=== PATIENT | male | born 1995 | race Caucasian/White ===

== ENCOUNTER 2020-01-10 07:45 | Emergency (ER) | payer SELFPAY ==
[~2020-01-10] VITALS: Ht 177.8 cm; Wt 81.6 kg
[2020-01-10 07:46] VITALS: BP 158/107
--- NOTE | 2020-01-10 07:51 | NUR ---
OFFICER GARRICK WITH [facility] BROUGHT PT IN FOR PRE-BOOK PT DENIES ANY INJURY OR MEDICAL COMPLAINTS AT THIS TIME---
[2020-01-10 08:05] VITALS: BP 140/90
--- NOTE | 2020-01-10 08:06 | NUR ---
Patient discharged with v/s stable. Written and verbal after care instructions given and explained. Patient verbalized understanding. Police with in custody. All questions addressed prior to discharge. Advised to follow up with PMD.
== END 2020-01-10 08:06 ==
LOC: MED 07:45
DX: R03.0 Elevated blood-pressure reading, without diagnosis of hypertension (principal); F90.9 Attention-deficit hyperactivity disorder, unspecified type; Z02.89 Encounter for other administrative examinations; Z04.1 Encounter for examination and observation following transport accident
CPT/HCPCS: 99283